=== PATIENT | female | born 1950 | race Caucasian/White ===

== ENCOUNTER → 2024-10-05 | Emergency (ER) | payer OTHER ==
[~2024-10-05] VITALS: Ht 157.5 cm; Wt 77.6 kg
[~2024-10-05] MED LIST: ASPIRIN81 MG PO; BENICAR HCT 401 EAC1; CEPHALEXIN750 MG PO; CRANBERRY450 M2; CYCLOBENZAPRINE10 MG PO; DULOXETINE HCL40 MG; GLIMEPIRIDE4 M1 PO; GLUCOSAMIN-CHO1 EACH PO; JARDIANCE25 MG PO; LOPRESSOR25 MG PO; MAG-OXIDE400 MG PO; MULTI VITAMIN1 EACH PO; PEPCID20 MG PO; ROPINIROLE HCL3 MG PO; ROSUVASTATIN CA40 MG PO; SULFASALAZINE500 M1 PO; TYLENOL325 MG; VITAMIN D310 MC4
[2024-10-05 16:41] LABS: HEMATOCRIT 42.4 % (36.0-45.00); HEMOGLOBIN 14.5 g/dL (12.0-15.00); MEAN CELL VOLUME 91.2 fL (80.00-100.00); MEAN CORPUSCULAR HEMOGLOBIN 31.2 pg (27.00-32.0); MEAN CORPUSCULAR HGB CONC 34.2 g/dl (32.0-36.0); PLATELET COUNT 314 K/uL (150-450); RED BLOOD COUNT 4.64 M/uL (4.00-6.00)
[2024-10-05 17:05] LABS: CALCIUM 9.6 mg/dL (8.5-10.1); CREATININE SERUM 1.05 mg/dL (0.55-1.02); GFR 51.09; POTASSIUM 4.24 mEq/L (3.5-5.1)
[2024-10-05 17:27] LABS: URINE APPEARANCE Clear; URINE BILIRRUBIN Negative (NEGATIVE); URINE BLOOD Negative; URINE COLOR Dark Yellow; URINE KETONE Negative (NEGATIVE); URINE LEUKOCYTE Negative; URINE NITRATE Negative; URINE PROTEIN Trace (NEGATIVE); URINE UROBILINOGEN 0.2 E.U./dl
[2024-10-05 17:28] LABS: URINE BACTERIA 62.3 uL (0.0-1933); URINE RBC 4.7 uL (0.0-20.8); URINE WBC 34.4 uL (0.0-23.2)
[2024-10-05 17:36] LABS: URINE GLUCOSE >=1000 MG/DL (NEGATIVE)
== END | disposition home or self-care (01) ==
LOC: ER 13:08
PROVIDERS: General Practice
DX: G89.11 Acute pain due to trauma (principal); S99.821A Other specified injuries of right foot, initial encounter; W22.8XXA Striking against or struck by other objects, initial encounter; Y93.89 Activity, other specified; Y92.89 Other specified places as the place of occurrence of the external cause; E11.9 Type 2 diabetes mellitus without complications; Z79.84 Long term (current) use of oral hypoglycemic drugs; E78.00 Pure hypercholesterolemia, unspecified; M85.871 Other specified disorders of bone density and structure, right ankle and foot; M77.31 Calcaneal spur, right foot